=== PATIENT | female | born 1955 | race American Indian/Alaskan Native ===

== ENCOUNTER 2018-11-30 09:08 | Emergency (ER) | payer SELFPAY ==
[2018-11-30 09:52] LABS: Basophils # (Auto) 0.1 K/mm3 (0.0-0.1); Basophils % (Auto) 1.4 % (0.0-1.8); Eosinophils % (Auto) 0.7 % (0.0-4.3); Hematocrit 39.7 % (30.3-42.9); Hemoglobin 14.2 gm/dl (10.1-14.3); Lymphocytes # (Auto) 1.8 K/mm3 (1.2-5.4); Lymphocytes % (Auto) 49.2 % (13.4-35.0); Mean Corpuscular HGB Conc 36 % (30-34); Mean Corpuscular Volume 112 fl (79-97); Monocytes # (Auto) 0.3 K/mm3 (0.0-0.8); Platelet Count 188 K/mm3 (140-440); Red Blood Count 3.53 M/mm3 (3.65-5.03); Red Cell Distribution Width 14.9 % (13.2-15.2)
--- NOTE | 2018-11-30 09:54 | Emergency Department Report ---
ED General Adult HPI - General Chief complaint: Recheck/Abnormal Lab/Rx Stated complaint: LOW POTASSIUM Time Seen by Provider: 11/30/18 09:35 Source: patient Mode of arrival: Ambulatory Limitations: No Limitations - History of Present Illness Initial comments: Patient presents to the emergency department for evaluation of irregular labs. Patient states she had a physical yesterday have blood drawn and was told this morning her potassium was 2.1. Patient takes lisinopril and denies any weakness. -: Sudden Severity scale (0 -10): 0 Improves with: none Worsens with: none Associated Symptoms: denies other symptoms Treatments Prior to Arrival: none - Related Data Home Medications Medication Instructions Recorded Confirmed Last Taken Lisinopril/Hydrochlorothiazide 1 each PO QAM 11/30/18 11/30/18 11/29/18 [Zestoretic 20-12.5 mg] Pravastatin [Pravachol] 80 mg PO DAILY 11/30/18 11/30/18 11/29/18 Allergies Allergy/AdvReac Type Severity Reaction Status Date / Time valsartan [From Diovan] Allergy Unknown Verified 11/30/18 09:10 ED Review of Systems ROS: Stated complaint: LOW POTASSIUM Other details as noted in HPI Comment: All other systems reviewed and negative Constitutional: denies: chills, fever Eyes: denies: eye pain, eye discharge, vision change ENT: denies: ear pain, throat pain Respiratory: denies: cough, shortness of breath, wheezing Cardiovascular: denies: chest pain, palpitations Endocrine: no symptoms reported Gastrointestinal: denies: abdominal pain, nausea, diarrhea Genitourinary: denies: urgency, dysuria, discharge Musculoskeletal: denies: back pain, joint swelling, arthralgia Skin: denies: rash, lesions Neurological: denies: headache, weakness, paresthesias Psychiatric: denies: anxiety, depression Hematological/Lymphatic: denies: easy bleeding, easy bruising ED Past Medical Hx - Past Medical History Previous Medical History?: Yes Hx Hypertension: Yes Additional medical history: High cholesterol - Surgical History Past Surgical History?: No - Social History Smoking Status: Never Smoker Substance Use Type: None - Medications Home Medications: Home Medications Medication Instructions Recorded Confirmed Last Taken Type Lisinopril/Hydrochlorothiazide 1 each PO QAM 04/18/19 04/18/19 04/17/19 History [Zestoretic 20-12.5 mg] Pravastatin [Pravachol] 80 mg PO DAILY 11/30/18 11/30/18 11/29/18 History ED Physical Exam - General Limitations: No Limitations General appearance: alert, in no apparent distress - Head Head exam: Present: atraumatic, normocephalic - Eye Eye exam: Present: normal appearance, PERRL, EOMI - ENT ENT exam: Present: mucous membranes moist - Neck Neck exam: Present: normal inspection - Respiratory Respiratory exam: Present: normal lung sounds bilaterally. Absent: respiratory distress - Cardiovascular Cardiovascular Exam: Present: regular rate, normal rhythm. Absent: systolic murmur, diastolic murmur, rubs, gallop - GI/Abdominal GI/Abdominal exam: Present: soft, normal bowel sounds. Absent: distended, tenderness - Extremities Exam Extremities exam: Present: normal inspection - Back Exam Back exam: Present: normal inspection - Neurological Exam Neurological exam: Present: alert, oriented X3, CN II-XII intact. Absent: motor sensory deficit - Psychiatric Psychiatric exam: Present: normal affect, normal mood - Skin Skin exam: Present: warm, dry, intact, normal color. Absent: rash ED Course Vital Signs 11/30/18 11/30/18 11/30/18 09:17 09:31 09:39 Temperature 97.9 F 98.2 F Pulse Rate 76 81 Respiratory 16 10 L Rate Blood Pressure 106/56 O2 Sat by Pulse 100 97 Oximetry ED Medical Decision Making - Lab Data Result diagrams: 11/30/18 09:38 11/30/18 09:38 Lab Results 11/30/18 11/30/18 Range/Units 09:38 09:38 WBC 3.6 L (4.5-11.0) K/mm3 RBC 3.53 L (3.65-5.03) M/mm3 Hgb 14.2 (10.1-14.3) gm/dl Hct 39.7 (30.3-42.9) % MCV 112 H (79-97) fl MCH 40 H (28-32) pg MCHC 36 H (30-34) % RDW 14.9 (13.2-15.2) % Plt Count 188 (140-440) K/mm3 Lymph % (Auto) 49.2 H (13.4-35.0) % [place] % (Auto) 9.0 H (0.0-7.3) % Eos % (Auto) 0.7 (0.0-4.3) % Baso % (Auto) 1.4 (0.0-1.8) % Lymph # 1.8 (1.2-5.4) K/mm3 [place] # 0.3 (0.0-0.8) K/mm3 Eos # 0.0 (0.0-0.4) K/mm3 Baso # 0.1 (0.0-0.1) K/mm3 Seg Neutrophils % 39.7 L (40.0-70.0) % Seg Neutrophils # 1.4 L (1.8-7.7) K/mm3 Sodium 138 (137-145) mmol/L Potassium 2.1 L* (3.6-5.0) mmol/L Chloride 91.2 L (98-107) mmol/L Carbon Dioxide 32 H (22-30) mmol/L Anion Gap 17 mmol/L BUN 5 L (7-17) mg/dL Creatinine 1.0 (0.7-1.2) mg/dL Estimated GFR > 60 ml/min BUN/Creatinine Ratio 5 % Glucose 97 (65-100) mg/dL Calcium 8.8 (8.4-10.2) mg/dL Phosphorus 3.00 (2.5-4.5) mg/dL Magnesium 2.10 (1.7-2.3) mg/dL Total Bilirubin 0.70 (0.1-1.2) mg/dL AST 19 (5-40) units/L ALT 10 (7-56) units/L Alkaline Phosphatase 53 (35-129) units/L Total Protein 6.2 L (6.3-8.2) g/dL Albumin 3.6 L (3.9-5) g/dL Albumin/Globulin Ratio 1.4 % - Medical Decision Making IV potassium and by mouth potassium given Critical care time in (mins) excluding proc time.: 45 Critical care attestation.: If time is entered above; I have spent that time in minutes in the direct care of this critically ill patient, excluding procedure time. ED Disposition Clinical Impression: Hypokalemia Disposition: OP ADMIT IP TO THIS HOSP Is pt being admited?: Yes Does the pt Need Aspirin: No Condition: Fair Referrals: PRIMARY CARE, [Referring] - 3-5 Days
[2018-11-30 10:17] LABS: Alanine Aminotransferase 10 units/L (7-56); Albumin 3.6 g/dL (3.9-5); BUN/Creatinine Ratio 5; Blood Urea Nitrogen 5 mg/dL (7-17); Calcium 8.8 mg/dL (8.4-10.2); Hemolysis Index 18
[2018-11-30] MEDS ORDERED: K-DUR PO ONE (11:36)
[2018-11-30] MEDS ORDERED: NACL 0.9% 250ML 250 ML ONE ×2 (12:33→15:33)
[2018-11-30] MEDS: KCL 10MEQ/100ML 10 MEQ/100 ML BAG IV SCH ×5 (12:34→18:42)
[2018-11-30] MEDS ORDERED: NACL 0.9% 250ML 250 ML IV ONE (12:35)
[2018-11-30] MEDS ORDERED: POTASSIUM CHLORIDE FEEDTUBE ONE (13:09)
[2018-11-30 16:16] VITALS: BP 108/57
== END 2018-11-30 18:39 | disposition admitted as inpatient to this hospital (09) ==
LOC: ED 09:08
DX: E87.6 Hypokalemia (principal); I10 Essential (primary) hypertension; E78.00 Pure hypercholesterolemia, unspecified; Z88.8 Allergy status to other drugs, medicaments and biological substances
CPT/HCPCS: 36415; 80053; 83735; 84100; 84132; 85025; 99284; J3480; J7050